=== PATIENT | female | born 1960 | race American Indian/Alaskan Native ===

== ENCOUNTER 2016-09-18 08:54 | Outpatient (CLI) | payer OTHER ==
--- NOTE | 2016-09-18 11:03 | Fluoroscopy Report ---
AIR CONTRAST BARIUM ENEMA HISTORY: Colon cancer screening, history of polyps removed 1-2 months ago. FINDINGS: [employer] film of the abdomen is normal. 17 fluoroscopic images and multiple overhead radiographs were obtained following infusion of barium contrast agent and air into the colon via a rectal tube. The colon is normal caliber and distensibility. There is no evidence for mass, polyp or abnormal dilatation. Normal appendix. The terminal ileum was not visualized. IMPRESSION: Normal exam. No colon mass or polyposis identified.
== END 2016-09-18 08:55 | disposition home or self-care (01) ==
LOC: FLUORO 08:54
PROVIDERS: ATTEND Internal Medicine Gastroenterology
DX: Z12.11 Encounter for screening for malignant neoplasm of colon (principal); Z86.010 Personal history of colon polyps
CPT/HCPCS: 74280